=== PATIENT | female | born 1970 | race Caucasian/White ===

== ENCOUNTER → 2017-05-08 13:05 | Outpatient (CLI) | payer OTHER | END | disposition home or self-care (01) | LOC: D.US 13:05 | DX: R10.2 Pelvic and perineal pain (principal) ==

== ENCOUNTER → 2017-05-15 09:34 | Outpatient (CLI) | payer OTHER | END | disposition home or self-care (01) | LOC: D.MRI 09:34 | DX: R93.8 Abnormal findings on diagnostic imaging of other specified body structures (principal) ==

== ENCOUNTER → 2017-08-04 16:44 | Outpatient (CLI) | payer OTHER ==
[~2017-08-04 16:44] MED LIST: ELIQUIS5 MG PO; LOVENOX40 MG/0.4 SC; MELATONIN10 M1 PO; OMEGA 3 FISH OI1 CAP PO; PERCOCET 7.5/321 TAB PO; PRAVACHOL20 MG PO; PROZAC10 MG PO; TOPAMAX50 MG PO; TUMERIC PO; VITAMIN B-121000 MCG PO; VITAMIN D31000 UNIT PO
== END | disposition home or self-care (01) ==
LOC: D.MAMMO 08:00
DX: Z12.31 Encounter for screening mammogram for malignant neoplasm of breast (principal)

== ENCOUNTER 2017-08-05 06:30 | Day surgery (SDC) | payer OTHER ==
[2017-08-04 15:41] LABS: BASOPHILS 0.5 % (0-2); EOSINOPHILS 0.9 % (0-7); HEMATOCRIT 40.9 % (36.0-48.0); HEMOGLOBIN 14.1 g/dL (12-16); IMMATURE GRANULOCYTES 0.5 % (0-5); LYMPHOCYTES 32.3 % (15-50); MCH 31.5 pg (26.0-34.0); MCHC 34.5 g/dL (31.0-37.0); MCV 91.5 fL (80.0-100.0); MEAN PLATELET VOLUME 11.2 fL (7.4-10.4); MONOCYTES 7.8 % (2-11); RBC 4.47 10x6/uL (4.00-5.40); RDW 13.2 % (11.5-14.5); WBC 9.9 10x3/uL (4.8-10.8)
[2017-08-04 15:49] LABS: PLATELET COUNT 236 10x3/uL (130-400)
[~2017-08-05] VITALS: Ht 154.9 cm; Wt 75.3 kg
--- NOTE | ~2017-08-05 | OP ---
PATIENT NAME: DOTTIE SOW MEDICAL RECORD: [id number] :72 LOCATION:.[facility] ADMISSION DATE: SURGEON: MAEGAN MCQUEEN MD DATE OF OPERATION: 08/05/2017 ADDENDUM ANESTHESIOLOGIST: Tejas Monterroso MD ANESTHESIA: General anesthetic with endotracheal intubation. FINDINGS: Ovaries bilaterally are adhered to the sidewalls, otherwise are unremarkable. The omentum was adhesed to the pelvis. SPECIMEN REMOVED: Right and left ovary. SPECIMEN DISPOSITION: Pathology. ESTIMATED BLOOD LOSS: Less than or equal to 25 cc. FLUIDS: 600 cc of lactated Ringer's. URINE OUTPUT: Quantity sufficient void prior to the procedure. COMPLICATIONS: None. DRAINS: None. INDICATIONS: The patient is a 46-year-old female with chronic pelvic pain. The patient has been counseled and has a desire for removal of both ovaries. She has had a prior hysterectomy. The patient understands she will be menopausal immediately and we have discussed nonhormonal as well as hormonal treatment of menopausal state. DESCRIPTION OF PROCEDURE: After informed consent was assured, the patient was taken to the operating room where anesthetic was obtained without difficulty. The patient was prepped and draped in usual sterile fashion. An incision was made at the umbilicus to accommodate a 5-mm trocar. This is inserted without difficulty. Pneumoperitoneum was developed and the patient was placed in Trendelenburg position. Accessory ports were placed in the right and left lower quadrant as well as midline. Her bowel swept free of the pelvis. The left ovary is elevated and using a coagulation cutter, the infundibulopelvic ligament is compressed, coagulated, and . This dissection was carried down underneath the ovary into the midline. The adhesions of the left ovary to the sidewall are taken down with sharp dissection using EndoShears. After the ovary was completely removed along with portions of the tube, it was placed in the cul-de-sac. There were some omental adhesions of the cul-de-sac and these were teased out with the grasper. Attention was directed to the right ovary, which is visualized and drawn to the midline from the left. From the right side, a coagulation cutter was used to compress, coagulate, and separate the infundibulopelvic ligament and the attachment of the ovary to the right pelvic sidewall. Inspection of both right and left ureters at the close of the procedure shows vermiculation and it is noted that the ureters are inferior to the operative field. Both right and left ovaries and portions of the tubes were placed in the cul-de-sac. An Endobag was now passed through the 10-mm port and OPERATIVE REPORT [id number] MAGIDOTTIE Keeley the ovaries collected and removed. Inspection of the operative site after pneumoperitoneum was reduced for 3 minutes reveals adequate hemostasis throughout. The pelvis was irrigated, irrigant removed and the accessory trocars removed under direct visualization. Primary trocar was removed after release of the pneumoperitoneum and all sites were closed with a subcuticular stitch and Dermabond applied. Sponge, lap, and needle counts correct times 2 at the close of this procedure. TRANSINT:[id number] Voice Confirmation ID: [id number] DOCUMENT ID: [id number] MAEGAN MCQUEEN MD CC: [id number] DICTATION DATE: 09/02/17 [address] DELIVERER: 09/02/17 1313 [facility] 08/05/17 [id number] [place] [address]
[~2017-08-05 06:30] MED LIST changes: -PERCOCET 7.5/321 TAB PO; -TUMERIC PO
[2017-08-05] MEDS ORDERED: TUMERIC PO (08:33)
[2017-08-05 08:53] VITALS: BP 153/75; Ht 154.9 cm; Wt 75.3 kg
[2017-08-05] MEDS ORDERED: PERCOCET 7.5/321 TAB PO (19:43)
== END 2017-08-05 20:10 | disposition home or self-care (01) ==
LOC: D.OPS 06:30 → D.PAN 08:30 → D.OPS 08:30 → D.LD 19:18 → D.OPS 20:10
PROVIDERS: Obstetrics & Gynecology
DX: R10.2 Pelvic and perineal pain (principal); G89.4 Chronic pain syndrome; N73.6 Female pelvic peritoneal adhesions (postinfective)

== ENCOUNTER 2017-08-10 13:54 | Emergency (ER) | payer OTHER ==
[2017-08-05 08:53] VITALS: BMI 31.4
[~2017-08-10 13:54] MED LIST changes: +PERCOCET 7.5/321 TAB PO; +TUMERIC PO
[2017-08-10 14:58] LABS: BASOPHILS 0.3 % (0-2); EOSINOPHILS 0.8 % (0-7); HEMATOCRIT 46.4 % (36.0-48.0); HEMOGLOBIN 16.3 g/dL (12-16); IMMATURE GRANULOCYTES 0.5 % (0-5); LYMPHOCYTES 16.2 % (15-50); MCH 31.8 pg (26.0-34.0); MCHC 35.1 g/dL (31.0-37.0); MCV 90.6 fL (80.0-100.0); MEAN PLATELET VOLUME 11.1 fL (7.4-10.4); MONOCYTES 10.4 % (2-11); NEUTROPHILS 71.8 % (40-80); PLATELET COUNT 204 10x3/uL (130-400); RBC 5.12 10x6/uL (4.00-5.40); RDW 13.2 % (11.5-14.5); WBC 10.6 10x3/uL (4.8-10.8)
[2017-08-10 15:12] LABS: CALC OSMOLALITY 268 mosm/kg (275-300); CALCIUM 9.1 mg/dL (8.5-10.1); CARBON DIOXIDE 20.9 mmol/L (21.0-32.0); CHLORIDE - SERUM 102 mmol/L (98-107); CREATININE - SERUM 0.8 mg/dL (0.6-1.3); GLUCOSE 103 mg/dL (74-106); POTASSIUM - SERUM 4.1 mmol/L (3.5-5.1); SODIUM 135 mmol/L (136-145); UREA NITROGEN 10 mg/dL (7-18); eGFR NON AFRICAN AMERICAN 82 mL/min (90-120)
[2017-08-10 17:47] LABS: APPEARANCE CLEAR (CLEAR); BILIRUBIN NEGATIVE (NEGATIVE); COLOR YELLOW (YELLOW); GLUCOSE NEGATIVE (NEGATIVE); KETONE NEGATIVE (NEGATIVE); NITRITE NEGATIVE (NEGATIVE); PROTEIN NEGATIVE (NEGATIVE); SPECIFIC GRAVITY 1.025 (1.005-1.020); UROBILINOGEN NORMAL (NORMAL)
[2017-08-10 18:18] LABS: INR 1.11 (0.85-1.17); PROTIME 13.9 SECONDS (11.6-15.0)
== END 2017-08-10 20:08 | disposition home or self-care (01) ==
LOC: D.ER 13:54
PROVIDERS: Family Medicine; Nurse Practitioner Family
DX: G89.18 Other acute postprocedural pain (principal); R11.0 Nausea; R13.10 Dysphagia, unspecified; I10 Essential (primary) hypertension

== ENCOUNTER → 2017-09-09 08:39 | Outpatient (CLI) | payer OTHER ==
[2017-08-05 08:53] VITALS: BMI 31.4
== END | disposition home or self-care (01) ==
LOC: D.CT 08:30
DX: R10.9 Unspecified abdominal pain (principal)

== ENCOUNTER 2019-01-05 15:28 | Emergency (ER) | payer OTHER, BC ==
[~2019-01-05] VITALS: Ht 154.9 cm; Wt 71.8 kg
[2019-01-05 15:55] VITALS: BP 163/87; Ht 154.9 cm; Wt 71.8 kg
== END 2019-01-05 18:44 | disposition home or self-care (01) ==
LOC: D.ER 15:28
DX: S09.90XA Unspecified injury of head, initial encounter (principal); W19.XXXA Unspecified fall, initial encounter; M53.3 Sacrococcygeal disorders, not elsewhere classified; Z79.01 Long term (current) use of anticoagulants; F17.210 Nicotine dependence, cigarettes, uncomplicated

== ENCOUNTER 2019-06-08 19:45 | Emergency (ER) | payer BC ==
[~2019-06-08] VITALS: Ht 154.9 cm; Wt 72.7 kg
[2019-06-08 19:49] VITALS: Ht 154.9 cm; Wt 72.7 kg
[2019-06-08 20:58] LABS: BASOPHILS 0.4 % (0-2); EOSINOPHILS 0.8 % (0-7); HEMATOCRIT 43.1 % (36.0-48.0); HEMOGLOBIN 14.8 g/dL (12-16); IMMATURE GRANULOCYTES 0.5 % (0-5); LYMPHOCYTES 37.4 % (15-50); MCH 31.2 pg (26.0-34.0); MCHC 34.3 g/dL (31.0-37.0); MCV 90.9 fL (80.0-100.0); MEAN PLATELET VOLUME 10.8 fL (7.4-10.4); MONOCYTES 7.1 % (2-11); NEUTROPHILS 53.8 % (40-80); PLATELET COUNT 209 10x3/uL (130-400); RBC 4.74 10x6/uL (4.00-5.40); RDW 13.1 % (11.5-14.5); WBC 10.7 10x3/uL (4.8-10.8)
[2019-06-08 21:06] LABS: APTT 29.2 SECONDS (22.8-39.4); INR 0.97 (0.85-1.17); PROTIME 12.8 SECONDS (11.6-15.0)
[2019-06-08 21:08] LABS: D-DIMER-QUANTITATIVE 0.31 ug/mLFEU (0.20-0.54)
[2019-06-08 21:22] LABS: CALC OSMOLALITY 279 mosm/kg (275-300); CALCIUM 9.1 mg/dL (8.5-10.1); CARBON DIOXIDE 27.6 mmol/L (21.0-32.0); CHLORIDE - SERUM 104 mmol/L (98-107); CREATININE - SERUM 1.1 mg/dL (0.6-1.3); GLUCOSE 103 mg/dL (74-106); POTASSIUM - SERUM 4.4 mmol/L (3.5-5.1); SODIUM 140 mmol/L (136-145); UREA NITROGEN 15 mg/dL (7-18); eGFR NON AFRICAN AMERICAN 56 mL/min (90-120)
[2019-06-08 21:34] LABS: ALBUMIN 3.8 g/dL (3.4-5.0); ALKALINE PHOSPHATASE 128 U/L (30-120); ALT (SGPT) 30 U/L (10-68); BILIRUBIN - TOTAL 0.21 mg/dL (0.2-1.3); CKMB 0.5 U/L (0.0-3.6); CREATINE KINASE 84 UL (21-215); MAGNESIUM - SERUM 2.1 mg/dL (1.8-2.4); PROTEIN - SERUM 7.6 g/dL (6.4-8.2); TROPONIN-I < 0.017 ng/mL (0.000-0.060)
[2019-06-08 23:28] VITALS: BP 151/83
== END 2019-06-08 23:28 | disposition home or self-care (01) ==
LOC: D.ER 19:45
PROVIDERS: Family Medicine
DX: J44.9 Chronic obstructive pulmonary disease, unspecified (principal); F17.210 Nicotine dependence, cigarettes, uncomplicated

== ENCOUNTER → 2019-11-09 09:29 | Outpatient (CLI) | payer BC ==
[2019-06-08 19:49] VITALS: BMI 30.3
== END | disposition home or self-care (01) ==
LOC: D.LAB 09:29
PROVIDERS: ATTEND Internal Medicine Pulmonary Disease
DX: Z11.59 Encounter for screening for other viral diseases (principal)

== ENCOUNTER → 2019-11-11 07:37 | Outpatient (CLI) | payer BC ==
[2019-06-08 19:49] VITALS: BMI 30.3
[2019-11-11 10:20] LABS: BASOPHILS 0.5 % (0-2); EOSINOPHILS 0.7 % (0-7); HEMATOCRIT 44.9 % (36.0-48.0); HEMOGLOBIN 14.6 g/dL (12-16); IMMATURE GRANULOCYTES 0.2 % (0-5); MCHC 32.5 g/dL (31.0-37.0); MCV 95.3 fL (80.0-100.0); MEAN PLATELET VOLUME 10.3 fL (7.4-10.4); MONOCYTES 8.6 % (2-11); PLATELET COUNT 194 10x3/uL (130-400); RBC 4.71 10x6/uL (4.00-5.40); RDW 14.6 % (11.5-14.5); WBC 8.8 10x3/uL (4.8-10.8)
[2019-11-12 05:10] LABS: IMMUNOGLOBULIN A 132 mg/dL (87-352); IMMUNOGLOBULIN G 1196 mg/dL (586-1602)
[2019-11-14 15:11] LABS: IGG SUBCLASS 1 592 mg/dL (248-810); IGG SUBCLASS 2 455 mg/dL (130-555); IGG SUBCLASS 3 64 mg/dL (15-102); IGG SUBCLASS 4 14 mg/dL (2-96); IGGS - IGG SERUM 1203 mg/dL (586-1602)
[2019-11-14 18:13] LABS: IMMUNOGLOBULIN E 42 IU/mL (6-495)
== END | disposition home or self-care (01) ==
LOC: D.RT 11-03 13:00
PROVIDERS: ATTEND Internal Medicine Pulmonary Disease
DX: J44.9 Chronic obstructive pulmonary disease, unspecified (principal); J42 Unspecified chronic bronchitis

== ENCOUNTER → 2019-11-15 21:25 | Outpatient (CLI) | payer BC ==
[2019-06-08 19:49] VITALS: BMI 30.3
== END | disposition home or self-care (01) ==
LOC: D.LABREF 21:25
PROVIDERS: ATTEND Internal Medicine Pulmonary Disease
DX: J44.9 Chronic obstructive pulmonary disease, unspecified (principal)

== ENCOUNTER → 2019-11-23 15:57 | Outpatient (CLI) | payer BC ==
[2019-06-08 19:49] VITALS: BMI 30.3
== END | disposition home or self-care (01) ==
LOC: D.LABREF 15:57
PROVIDERS: ATTEND Internal Medicine Pulmonary Disease
DX: J44.9 Chronic obstructive pulmonary disease, unspecified (principal)

== ENCOUNTER → 2020-07-04 09:30 | Outpatient (CLI) | payer BC ==
[2019-06-08 19:49] VITALS: BMI 30.3
--- NOTE | 2020-07-04 12:11 | NUR ---
PATIENT HAD A NUCLEAR STRESS TEST TODAY. AFTER THE STRESS PORTION WAS FINISHED AND WE WERE HEADED BACK OUT TO THE WAITING ROOM, THE PATIENT BECAME DIZZY AND FELT FAINT. I ASSISTED THE PATIENT TO THE FLOOR PROTECTING HER HEAD AND ELEVATED HER FEET. PATIENT WAS RESPONSIVE TO ME THE ENTIRE TIME. SHE FOLLOWED COMMANDS AND ANSWERED QUESTIONS APPROPRIATELY. PATIENT WAS HELPED INTO A WHEELCHAIR AND WAS BROUGHT BACK INTO THE NUC ROOM TO LIE DOWN. HER BLOOD PRESSURE AT THAT TIME WAS 158/77. PATIENT DENIES ANY PAIN OR INJURIES. SHE WAS ABLE TO EAT, DRINK, AND HOLD DOWN A SNACK AND STATES SHE FEELS MUCH BETTER. PATIENT STATES SHE THINKS HER BLOOD SUGAR WAS LOW. PATIENT CURRENTLY WAITING TO FINISH HER STRESS TEST AND VISITING WITH HER SISTER WHO IS HERE WITH HER. NO S/S OF DISTRESS OR DISCOMFORT. PATIENT DENIES NEED TO GO TO THE EMERGENCY ROOM AND DENIES ANY INJURY. NELSON
--- NOTE | 2020-07-06 09:58 | EC ---
PATIENT:DOTTIE SOW DATE OF SERVICE: 07/04/20 SEX: F MEDICAL RECORD: [id number] DATE OF : 72 [facility] AGE OF PATIENT: 49 ADMISSION DATE: 07/04/20 REFERRING PHYSICIAN: INTERPRETING PHYSICIAN: JOSÉ MIGUEL ALBRECHT MD ECHOCARDIOGRAM REPORT ECHO CHARGES 4 ECHO COMPLETE Date: 07/04/20 CLINICAL DIAGNOSIS: HEART MURMUR ECHOCARDIOGRAPHIC MEASUREMENTS (adult normal given) AC root (d.<3.7cm) 2.5 cm LV Septum d (<1.2 cm> 0.8 cm Valve Excursion 1.3 cm LV Septum (systole) 1.0 cm Left Atria (s.<4.0cm> 3.4 cm LVPW d(<1.2cm) 1.0 cm RV (d.<2.3cm) 3.2 cm LVPW (sytole) 1.2 cm LV diastole(<5.6CM) 4.9 cm MV E-F(>70mm/sec) cm LV systole 3.5 cm LVOT Diameter 1.9 cm MV exc.(>10mm) 1.4 cm Est.ejection fraction (50-75%) % DOPPLER: LVIT cm/sec A 78.0 cm/sec E 62.0 cm/sec LA cm/sec RVSP 18 mmHg LVOT 87 cm/sec AOP1/2T m/s Asc. Ao 128 cm/sec RVOT 70 cm/sec RA cm/sec PA 129 cm/sec AV Gradient Peak 6.55 mmHg AV Mean 3.35 mmHg AV Area 2.2 cm MV Gradient Peak 3.13 mmHg MV Mean 1.54 mmHg MV Area cm COMMENTS: Founder And Chief Technical Officer: 2 HERVE MEREDITH Water Purifier Operator: 3 Dr. Jensen TAPE# PACS Pericardial Effusion N DATE OF SERVICE: Adequate 2D, color-flow imaging, spectral Doppler, and M-Mode FINDINGS: No LVH. LV internal dimensions are normal. Wall motion is normal. EF is greater than or equal to 55%. Aortic valve is tricuspid. No evidence of stenosis by Doppler interrogation. Left atrium is normal. Mitral valve shows no prolapse. Trivial MR. Right side is grossly normal. Trivial TR. TRANSINT:[id number] Voice Confirmation ID: [id number] DOCUMENT ID: [id number] ECHOCARDIOGRAM REPORT [id number] SOWDOTTIE AMAYA GREGORY A MD at 0958 CC: [id number] DICTATION DATE: 07/05/20 1509 BULK PIGMENT REDUCER: 07/05/20 1716 DEP CLI 07/04/20 [id number] [place] [address]
== END | disposition home or self-care (01) ==
LOC: D.HCCARDIO 09:30
PROVIDERS: ATTEND Internal Medicine Cardiovascular Disease
DX: R06.09 Other forms of dyspnea (principal); R01.1 Cardiac murmur, unspecified

== ENCOUNTER 2020-07-11 06:39 | Day surgery (SDC) | payer BC ==
[~2020-07-11] VITALS: Ht 154.9 cm; Wt 78.2 kg
--- NOTE | ~2020-07-11 | HEMODYNAMI ---
PATIENT:DOTTIE SOW MEDICAL RECORD: [id number] : 72 LOCATION:[facility] ADMISSION DATE: 07/11/20 Generatedon:19:07 Patient name: DOTTIE SOW Patient #: [id number] SSN: : 1970 Date of study: 07/11/2020 Page: Of Hemodynamic Procedure Report Patient Data Patient Demographics Procedure consent was obtained First Name: DOTTIE Gender: Female Last Name: MAGI : 1970 Middle Initial: M Age: 49 year(s) Patient #: [id number] Race: Unknown Additional ID: [id number] Contact details [address]: [address] [place] [address] State: [place] City: [place] Zip code: [address] Past Medical History Performed procedures and imaging results Date Procedure Procedure Results Comments Stress testing Positive->Intermediate with SPECT MPI risk Allergies Allergen Reaction Date Comments Reported Other allergy 07/11/2020 ANORO ELLIPTA, CODEINE, HYDROCODONE, MORPHINE Admission Admission Data Admission Date: 07/11/2020 Admission Time: 6:39 Lab Results Lab Result Date: 07/11/2020 Lab Result Time: 0:00 Biochemistry Name Units Result Min Max BUN mg/dl 21 --(----)-* 7 18 Creatinine mg/dl 0.9 --(-*--)-- 0.6 1.3 eGFR ml/min 70.42225 *-(----)-- 90 120 NONAFRICAN CBC Name Units Result Min Max Hematocrit % 40.8 -*(----)-- 42 54 Hemoglobin g/dl 13.4 -*(----)-- 13.5 17.5 Procedure Procedure Types Cath Procedure Diagnostic Procedure C [facility] w/Coronaries Sedation Charges Moderate Sedation 10-24 minutes Peripheral Cath Diagnostic Procedure Stereotyper Helper Peripheral Procedures AFRO Diagnostic Procedure Description Procedure Date Procedure Date: 07/11/2020 Procedure Start Time: 8:51 Procedure End Time: 9:03 Procedure Staff Name Function Andrea Ceja MD Performing Physician Diamante Abdul RT Monitor Heather Pablo RT Scrub Bhargavi Muller RN Metal Washing Machine Operator Procedure Data Cath Procedure Fluoroscopy Diagnostic fluoroscopy Total fluoroscopy Time: 1.6 time: 1.6 min min Diagnostic fluoroscopy Total fluoroscopy dose: 510 dose: 510 mGy mGy Contrast Material Contrast Material Type Amount (ml) Isovue 300 127 Entry Location Entry Primary Successful Side Size Upsize Upsize Entry Closure Succes sful Closure Location (Fr) 1 (Fr) 2 (Fr) Remarks Device Remarks Femoral Right 5 Fr Exoseal artery Estimated blood loss: 5 ml Diagnostic catheters Device Type Used For End Catheter Placement MULTIPACK JL 4.0 5Fr Procedure catheter MULTIPACK 3DRC 5Fr Procedure catheter MULTIPACK Pigtail 5 Fr Procedure catheter Procedure Complications No complications Procedure Medications Medication Administration Route Dosage Oxygen etCO2 Nasal cannula 2 l/min Lidocaine 2% added to field 20 Heparin Flush Bag added to field 2 bags (1000units/500ml NS) 0.9% NaCl I.V. 100 ml/hr Zofran I.V. 4 mg Versed I.V. 1 mg Fentanyl I.V. 50 mcg Versed I.V. 1 mg Fentanyl I.V. 50 mcg Versed I.V. 1 mg Versed I.V. 1 mg Hemodynamics Rest Heart Rate: 76 (bpm) Pressure Samples Time Site Value (mmHg) Purpose Heart Use Rate(bpm) 8:56 LV 157/14,21 Snapshot 79 8:56 LV 160/14,20 Snapshot 79 Gradients Valve Time Site Site Mean SEP/DFP Peak To Heart Use 1 2 (mmHg) (sec/min) Peak Rate (mmHg) (bpm) Aortic 8:56 LV AO 80 Snapshots Pre Cath Intra NCS Post Cath Vital Signs Time Heart Resp SPO2 etCO2 NIBP (mmHg) Rhythm Pain Sedation Rate (ipm) (%) (mmHg) Status Level (bpm) 8:35:49 71 28 99 0 155/82(126) NSR 0 (11) 10(A) , No pain 8:40:22 72 16 98 37.3 150/79(118) NSR 0 (11) 10(A) , No pain 8:44:42 75 12 96 29 138/77(106) NSR 0 (11) 10(A) , No pain 8:49:00 77 11 96 42.5 123/77(102) NSR 0 (11) 9(A) , No pain 8:53:16 77 12 95 41 127/71(102) NSR 0 (11) 9(A) , No pain 8:58:58 80 12 96 40.2 128/71(99) NSR 0 (11) 9(A) , No pain 9:03:20 78 12 98 41 129/73(98) NSR 0 (11) 10(A) , No pain Medications Time Medication Route Dose Verified Delivered Reason Notes Effe ctiveness by by 8:37:14 Oxygen etCO2 2 Andrea Buffie used for Nasal l/min [facility] package line relief operator cannula 8:40:00 Lidocaine 2% added 20ml Andrea Andrea for local to vial [facility] anesthetic field MD LEON 8:40:08 Heparin Flush added 2 Andrea Andrea used for Bag to bags [facility] procedure (1000units/500ml field MD LEON NS) 8:40:29 0.9% NaCl I.V. 100 Andrea Buffie used for ml/hr [facility] package line relief operator MD 8:40:59 Zofran I.V. 4 mg Andrea Buffie Per [facility] RN physician 8:45:14 Versed I.V. 1 mg Andrea Buffie for [facility] RN sedation 8:45:19 Fentanyl I.V. 50 Andrea Buffie for mcg Marcial Muller RN sedation 8:47:23 Versed I.V. 1 mg Andrea Buffie for Marcial Muller RN sedation 8:47:26 Fentanyl I.V. 50 Andrea Buffie for [facility] Muller RN sedation 8:52:09 Versed I.V. 1 mg Andrea Buffie for [facility] RN sedation 8:57:12 Versed I.V. 1 mg Andrea Buffie for [facility] RN sedation Procedure Log Time Note 8:07:26 Informed consent obtained and on chart 8:08:10 Procedure Status Elective Heart Cath (OP). 8:08:12 Time tracking: Regular hours (M-F 7:00 - 5:00) 8:08:14 Plan of Care:Hemodynamics will remain stable., Cardiac rhythm will remain stable., Comfort level will be maintained., Respiratory function will remain adequate., Patient/ family verbilizes understanding of procedure., Procedure tolerated without complication., Recovers from procedure without complications.. 8:09:16 H&P Date Dictated: 06/27/2020 Within 30 days and on chart., H&P Addendum completed by physician on day of procedure. (MUST COMPLETE FOR ALL OUTPATIENTS). 8:10:32 Patient allergic to Other allergyANORO ELLIPTA, CODEINE, HYDROCODONE, MORPHINE 8:15:52 Lab Result : BUN 21 mg/dl 8:15:53 Lab Result : Creatinine 0.9 mg/dl 8:15:53 Lab Result : eGFR NONAFRICAN 70.94926 ml/min 8:15:53 Lab Result : Hemoglobin 13.4 g/dl 8:15:53 Lab Result : Hematocrit 40.8 % 8:19:23 Diamante Abdul RT(R) sent for patient. Start room use. 8:27:51 Patient received from Pre/Post Procedure Room to CCL 1 Alert and oriented. Tansferred to table in Supine position. 8:33:28 Vital chart was started 8:34:50 Warm blankets applied, and iggy hugger turned on for patient comfort. 8:34:51 Correct patient and procedure confirmed by team. 8:34:53 ECG and BP/O2 sat monitors applied to patient. 8:34:55 Full Disclosure recording started 8:34:57 Pre-procedure instructions explained to patient. 8:34:58 Pre-op teaching completed and patient verbalized understanding. 8:34:59 Family in patients room. 8:35:02 Patient NPO since Midnight. 8:35:03 Is the patient allergic to Iodine/contrast media? No. 8:35:05 Is patient on blood thinner?Yes 8:35:51 PT TAKES ELIQUIS. LAST DOSE ON THURSDAY. HISTORY OF LT. LEG AND RT. ARM BLOOD CLOTS. 8:36:03 Patient diabetic? No. 8:36:04 Patient not . Patient has had hysterectomy. 8:36:06 Previous problem with sedation/anesthesia? Yes ?NAUSEA 8:36:15 Snore? Yes 8:36:16 Sleep apnea? No 8:36:17 Deviated septum? No 8:36:18 Opens mouth fully? Yes 8:36:20 Airway obstruction? No ? 8:36:22 Sticks out tongue? Yes 8:36:33 Dentures? No ? 8:36:37 Pre procedure: right dorsailis pedis pulse 1+ Palpable, but thready & weak; easily obliterated 8:36:40 Patient pain scale 0/10 ?. 8:37:14 Oxygen 2 l/min etCO2 Nasal cannula was administered by Bhargavi Muller RN; used for procedure; Verbal order read back and verified. 8:38:07 IV patent on arrival in left hand with 0.9% NaCl at O. 8:38:09 Lab results completed and on chart. 8:38:23 Right groin area was prepped with chlora-prep and draped in sterile fashion 8:38:25 Alarms reviewed by R. N. 8:38:25 Sharps counted by scrub and verified by R.N. 8:40:00 Lidocaine 2% 20ml vial added to field was administered by Andrea Ceja MD; for local anesthetic; Verbal order read back and verified. 8:40:08 Heparin Flush Bag (1000units/500ml NS) 2 bags added to field was administered by Andrea Ceja MD; used for procedure; Verbal order read back and verified. 8:40:12 Rhythm: sinus rhythm 8:40:29 0.9% NaCl 100 ml/hr I.V. was administered by Bhargavi Muller RN; used for procedure; Verbal order read back and verified. 8:40:59 Zofran 4 mg I.V. was administered by Bhargavi Muller RN; Per physician; Verbal order read back and verified. 8:43:34 Use device set Femoral Dx 8:43:35 ACIST Syringe (18425) opened to sterile field. 8:43:35 Bag Decanter () opened to sterile field. 8:43:37 ACIST Hand Control (56828) opened to sterile field. 8:43:37 ACIST Manifold (24399) opened to sterile field. 8:43:37 Tegaderm 4 x 4 (1626W) opened to sterile field. 8:43:39 Medline Cath Pack ([id number]) opened to sterile field. 8:43:40 DIAGNOSTIC Multipack 5Fr catheter set (UH3567) opened to sterile field. 8:43:41 SHEATH 5FR [place] (ZOW569) opened to sterile field. 8:43:42 EMERALD Guide Wire (259-202) opened to sterile field. 8:45:14 Versed 1 mg I.V. was administered by Bhargavi Muller RN; for sedation; Verbal order read back and verified. 8:45:19 Fentanyl 50 mcg I.V. was administered by Bhargavi Muller RN; for sedation; Verbal order read back and verified. 8:47:01 --------ALL STOP TIME OUT------ 8:47:01 Final Timeout: patient, procedure, and site verified with staff and physician. All members of the team are in agreement. 8:47:02 Right groin site verified by team. 8:47:07 Fire Safety Assessment: A--An alcohol-based skin anteseptic being used preoperatively., C--Open oxygen or nitrous oxide is being used., D--An ESU, laser, or fiber-optic light is being used. 8:47:10 Physical assessment completed. ASA score P 2 - A patient with mild systemic disease as per Andrea Ceja MD. 8:47:11 2) 60-89 Mildly reduced kidney function, and other findings (as for stage 1) point to kidney disease. 8:47:15 Maximum allowable contrast dose (3.7 X eGFR X 0.75)197 ml. 8:47:18 Sedation plan: IV Moderate Sedation Medication:Versed, Fentanyl 8:47:23 Versed 1 mg I.V. was administered by Bhargavi Muller RN; for sedation; Verbal order read back and verified. 8:47:26 Fentanyl 50 mcg I.V. was administered by Bhargavi Muller RN; for sedation; Verbal order read back and verified. 8:48:23 Zero performed for pressure channel P1 8:50:45 Procedure started. 8:51:05 Local anesthetic to right femoral artery with Lidocaine 2% by Andrea Ceja MD.INITIAL ACCESS ONLY 8:51:08 Baseline sample Acquired. 8:52:09 Versed 1 mg I.V. was administered by Bhargavi Muller RN; for sedation; Verbal order read back and verified. 8:52:09 A 5 Fr sheath was inserted into the Right Femoral artery 8:52:28 A MULTIPACK JL 4.0 5Fr catheter was advanced over the wire and used for Procedure. 8:53:44 LCA angiography performed. 8:53:47 Catheter removed. 8:54:21 A MULTIPACK 3DRC 5Fr catheter was advanced over the wire and used for Procedure. 8:55:08 RCA angiography performed. 8:55:09 Catheter removed. 8:55:11 ACCDominant side:Co-Dominant 8:55:16 A MULTIPACK Pigtail 5 Fr catheter was advanced over the wire and used for Procedure. 8:56:04 LV gram done using CORTÉS 8:56:07 Injector settings: Ml/sec: 10, Volume: 20, 8:56:26 LV hemodynamics recorded. 8:56:33 EF : 55 % 8:57:00 CATHETER PULLED DOWN TO LOOK AT AORTA 8:57:05 Abdominal Aortagram was performed. 8:57:12 Versed 1 mg I.V. was administered by Bhargavi Muller RN; for sedation; Verbal order read back and verified. 8:57:48 Procedure type changed to Cath procedure, Diagnostic procedure, LHC, LHC w/Coronaries, Sedation Charges, Moderate Sedation 10-24 minutes, Peripheral Cath Diagnostic Procedure, Stereotyper Helper Peripheral Procedures, AFRO Diagnostic 8:58:37 Left leg runoff performed. 8:59:26 Right leg runoff performed. 8:59:29 Catheter removed. 8:59:32 EXOSEAL 5Fr (EX500) opened to sterile field. 9:00:35 Sheath removed intact; hemostasis achieved with Exoseal to the Right Femoral artery. 9:00:38 Procedure ended.(Physican Out) 9:01:13 Fluoroscopy time 01.60 minutes. 9:01:17 Fluoroscopy dose: 510 mGy 9:01:17 Flurop Dose total: 510 9:01:23 Dose Area Product 22886 mGy/cm. 9:01:26 Contrast amount:Isovue 300 127ml. 9:01:31 Maximum allowable dose exceeded? No. 9:01:36 Sharps counted by scrub and verified by R.N. 9:01:40 Post-op/insertion site Right Femoral artery dressed using a 4 x 4 and Tegaderm. 9:01:43 Post-procedure physical assessment completed. ASA score P 2 - A patient with mild systemic disease as per Andrea Ceja MD. 9:01:46 Post procedure rhythm: sinus rhythm 9:01:48 Estimated blood loss: 5 ml 9:01:56 Post procedure instruction explained to patient.Patient verbalizes understanding. 9::56 Patient needs reinforcement of post procedure teaching. 9:02:23 Procedure and supply charges have been captured, reviewed, submitted and are correct. 9:03:26 Procedure Complication : No complications 9:03:28 Vital chart was stopped 9:03:29 LHC Findings: mild to moderate CAD (<70%) 9:03:39 AFRO Findings: PVD: mild to moderate (<70%) 9:03:41 Operative report dictated upon procedure completion. 9:03:41 See physician's report for complete and final results. 9:03:43 Report given to Pre/Post Procedure Room. 9:03:45 Patient transfered to Pre/Post Procedure Room with Bed. 9:03:47 Procedure ended. 9:03:47 Full Disclosure recording stopped 9:04:36 End room use (Document Last) 9:06:36 End room use (Document Last) Device Usage Item Name Manufacture Quantity Catalog Hospital Part Current Minimal L ot# / Number Charge Number Stock Stock Serial# Code ACIST Acist 1 35349 [id number] [id number] [id number] 20 Syringe Medical (88288) Systems Inc Bag Microtek 1 2001S 376664 14483 473818 5 Decanter Medical Inc. () ACIST Hand Acist 1 81007 369180 606368 992935 5 Control Medical (27714) Systems Inc ACIST Acist 1 61795 069154 217078 089670 5 Manifold Medical (57160) Systems Inc Tegaderm 4 3M 1 1626W 240940 298139 749505 5 x 4 (1626W) Medline Medline 1 [id number] 287290 79860 514834 5 Cath Pack ([id number]) DIAGNOSTIC Cardinal 1 TC5421 746443 37234 066835 30 Multipack Health 5Fr catheter set (CZ0026) SHEATH 5FR Terumo 1 CSI348 415691 380462 194506 5 [place] (VSW137) EMERALD Cardinal 1 502-455 749063 447633 821293 5 Guide Wire Health (502-455) MULTIPACK Cardinal 1 467607 5 JL 4.0 5Fr Health catheter MULTIPACK Cardinal 1 051359 5 3DRC 5Fr Health catheter MULTIPACK Cardinal 1 012845 5 Pigtail 5 Health Fr catheter EXOSEAL 5Fr Cardinal 1 EX500 [id number] 709881 655798 10 (EX500) Health Signature Audit [place] Stage Time Signature Unsigned Intra-Procedure 07/11/2020 Diamante Abdul 9:06:36 AM RT(R) Intra-Procedure 07/11/2020 Bhargavi Muller RN 9:07:01 AM Intra-Procedure 07/11/2020 Andrea Lama 9:07:24 AM Marcelino LEON [facility] [address] [place] [address]
[~2020-07-11 06:39] MED LIST changes: +TOPROL XL25 MG PO
[2020-07-11] MEDS ORDERED: FLUTICASONE PRO16 GM NASAL (07:05)
[2020-07-11] MEDS ORDERED: EDARBI40 MG PO (07:06)
[2020-07-11] MEDS ORDERED: CLARITIN 10 MG10 MG PO (07:06)
[2020-07-11 07:32] LABS: BASOPHILS 0.3 % (0-2); EOSINOPHILS 0.2 % (0-7); HEMATOCRIT 40.8 % (36.0-48.0); HEMOGLOBIN 13.4 g/dL (12-16); IMMATURE GRANULOCYTES 0.4 % (0-5); LYMPHOCYTE ABS# 3.08 10x3/uL (1.18-3.74); LYMPHOCYTES 25.5 % (15-50); MCH 30.5 pg (26.0-34.0); MCHC 32.8 g/dL (31.0-37.0); MCV 92.9 fL (80.0-100.0); MEAN PLATELET VOLUME 10.9 fL (7.4-10.4); MONOCYTES 8.3 % (2-11); NEUTROPHIL ABS# 7.89 10x3/uL (1.56-6.13); NEUTROPHILS 65.3 % (40-80); RBC 4.39 10x6/uL (4.00-5.40); RDW 13.9 % (11.5-14.5); WBC 12.1 10x3/uL (4.8-10.8)
[2020-07-11 07:33] LABS: PLATELET COUNT 259 10x3/uL (130-400)
[2020-07-11 07:38] VITALS: BP 149/77; Ht 154.9 cm; Wt 78.2 kg
[2020-07-11 07:47] LABS: ANION GAP 12.3 mmol/L (8-16); CALCIUM 8.7 mg/dL (8.5-10.1); CARBON DIOXIDE 25.7 mmol/L (21.0-32.0); CHOL - HDL RATIO 8.4 ratio (2.3-4.1); CREATININE - SERUM 0.9 mg/dL (0.6-1.3); LDL-HDL RATIO 6.2 ratio (1.5-3.5)
--- NOTE | 2020-07-11 09:15 | NUR ---
PT REC'D TO CATH RECOVERY ROOM 9 VIA STRETCHER, MONITORS ESTAB. SISTER AT BS. SEE POST CATH INSURANCE SALES SPECIALIST FLOWSHEETS. ALARMS ON AND C/L IN REACH.
--- NOTE | 2020-07-11 09:30 | NUR ---
R GROIN SITE SOFT, NO S/S BLEEDING OR HEMATOMA. R LEG/FOOT WARM WITH PALP PULSES AND CAP REFILL WNL. VSS. PT AWAKE, UPDATE GIVEN AND QUESTIONS ANSWERED. PT DENIES PAIN OR NEEDS. ALARMS ON AND C/L IN REACH.
--- NOTE | 2020-07-11 10:00 | NUR ---
R GROIN SITE SOFT, C/D/I, NO S/S BLEEDING OR HEMATOMA. PULSES PALP. HOB ELEVATED SLOWLY. SANDWICH TRAY PROVIDED, SISTER AT BS ASSISTING PT. VSS. ALARMS ON AND C/L IN REACH.
--- NOTE | 2020-07-11 10:15 | NUR ---
PT TOLERATED FOOD AND DRINK, DENIES NAUSEA. R GROIN SITE SOFT, NO S/S BLEEDING OR HEMATOMA. PULSES PALP. VSS.
--- NOTE | 2020-07-11 10:45 | NUR ---
R GROIN SITE SOFT, NO S/S BLEEDING OR HEMATOMA. PULSES PALP. VSS. PIV D/C'D INTACT, DSG APPLIED. PT ALLOWED UP TO GET DRESSED AND GO TO BR INDEPENDENTLY.
--- NOTE | 2020-07-11 11:00 | NUR ---
ALL DISCHARGE INSTRUCTIONS REVIEWED WITH PT AND HER SISTER - INCLUDING RESTRICTIONS, MEDS AND F/U APPT - BOTH VERBALIZE UNDERSTANDING.
--- NOTE | 2020-07-11 11:05 | NUR ---
PT D/C'D TO PRIVATE VEHICLE WITH ALL PAPERWORK AND BELONGINGS.
--- NOTE | 2020-07-12 14:15 | OP ---
PATIENT NAME: DOTTIE SWO MEDICAL RECORD: [id number] :72 LOCATION:[facility] ADMISSION DATE: SURGEON: JOSÉ MIGUEL ALBRECHT MD DATE OF OPERATION: 07/11/2020 PROCEDURE: Cath, aortofemoral runoff, right femoral artery approach. CATHETERS: A 5-Bermudian sheath, 5/4 left and right Tiki, 5/4 pig. The procedure was well tolerated. The patient was returned to the agee. Sheath removed after placement of ExoSeal. FINDINGS: Left ventriculography in 30-degree CORTÉS view, normal wall motion, normal systolic function. CORONARY ANATOMY: LEFT MAIN: Left main is free of disease. LAD: Free of disease in the diagonal system. CIRCUMFLEX: Free of disease in the marginal system. RIGHT CORONARY ARTERY: Dominant artery, gives rise to PDA, free of disease. DESCRIPTION OF PROCEDURE: Aortofemoral runoff was performed secondary to difficulty with access in traversing the descending aorta. The catheter was at level of the renal arteries. Nonselective renal arteriogram shows no significant stenosis of either renal. There is a stenosis of the abdominal aorta of 60-80% seen in the KHMER view, right iliac system, common internal and external shows wall disease with no significant stenosis. Femoral system including common superficial deep. On the right show luminal disease, but no significant stenosis. There is early stenosis of both peroneal, posterior, tibial and dorsalis pedis, nothing greater than 20%. Left iliac system including common, external and internal; no significant stenosis. Left femoral system including common, superficial and deep; no significant stenosis. However, the peroneal and both dorsalis pedis and posterior tibial does have early atherosclerotic stenosis. IMPRESSION: Normal coronary anatomy and LV function, stenosis of the abdominal aortic and followed clinically, already on a DOAC for deep vein thrombosis prophylaxis, this should help with peripheral vascular disease as well as smoking cessation. TRANSINT:[id number] Voice Confirmation ID: [id number] DOCUMENT ID: [id number] JOSÉ MIGUEL ALBRECHT MD at 1415 CC: [id number] DICTATION DATE: 07/11/20904 [facility] MANAGER: 07/11/20 1229 [facility] 07/11/20 [place] [address]
== END 2020-07-11 11:05 | disposition home or self-care (01) ==
LOC: D.CATH 06:39
PROVIDERS: ATTEND Internal Medicine Interventional Cardiology
DX: R07.9 Chest pain, unspecified (principal); I10 Essential (primary) hypertension; E78.5 Hyperlipidemia, unspecified; R94.31 Abnormal electrocardiogram [ECG] [EKG]; I20.9 Angina pectoris, unspecified; R01.1 Cardiac murmur, unspecified

== ENCOUNTER → 2020-07-23 11:14 | Outpatient (CLI) | payer BC ==
[2020-07-11 07:38] VITALS: BMI 32.5
[~2020-07-23 11:14] MED LIST changes: +CLARITIN 10 MG10 MG PO; +EDARBI40 MG PO; +FLUTICASONE PRO16 GM NASAL
== END | disposition home or self-care (01) ==
LOC: D.CT 11:14
PROVIDERS: ATTEND Nurse Practitioner
DX: R06.09 Other forms of dyspnea (principal)